=== PATIENT | male | born 2000 | race Caucasian/White ===

== ENCOUNTER 2023-07-07 16:43 | Emergency (ER) | payer OTHER, SELFPAY ==
[2023-07-07] VITALS (8 sets, daily range): BP systolic 112–127; BP diastolic 58–76; PULSE 63–76; RESP 16; TEMP 36.6; O2SAT 95–100; BMI 30.1
--- NOTE | 2023-07-07 17:57 | DI.RAD.S_ITS ---
PROCEDURE: XR KNEE RT 3V INDICATIONS: pain TECHNIQUE: 3 views of the knee were acquired. COMPARISON: None. FINDINGS: Bones: No fractures or dislocations. No suspicious bony lesions. Soft tissues: No significant joint effusion. No suspicious soft tissue calcifications. IMPRESSION: No acute bony abnormality or significant effusion. If symptoms persist with conservative management, consider cross-sectional imaging such as CT or MRI. Approved by: Yuliana Chandler M.D.,Ph.D. on 07/07/2023 at 18:59
--- NOTE | 2023-07-07 20:48 | ED_ITS ---
HPI - Extremity Problem General Chief complaint: Extremity Problem,Nontraumatic Stated complaint: Knee pain. Time Seen by Provider: 07/07/23 20:47 Source: patient Mode of arrival: Ambulatory History of Present Illness HPI Narrative: 22-year-old male with ongoing anterior right knee pain for the last few weeks. No recent new activity or injury or twisting. Occasionally he has locking like symptoms. No previous arthroscopy or interventions on that knee, no joint injections. Occasionally it feels swollen, not recently. Painful with working activities, as he works security and carries gear. 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 No abrasions or skin injuries, no penetrating injuries. No change in footwear or activities. Related Data Allergies Allergy/AdvReac Type Severity Reaction Status Date / Time Penicillins Allergy Verified 07/07/23 19:43 Exam Narrative Exam Narrative: GENERAL: Well-developed patient, in mild distress. HEAD: Atraumatic. Normocephalic. EYES: Pupils equal round and reactive. Extraocular motions intact. No scleral icterus. No injection or drainage. ENT: Nose without bleeding, purulent drainage. Throat without erythema, tonsillar hypertrophy or exudate. Airway patent. NECK: Trachea midline. Non tender CARDIOVASCULAR: Regular rate and rhythm without murmurs, gallops, or rubs. RESPIRATORY: Clear to auscultation. Breath sounds equal bilaterally. No wheezes, rales, or rhonchi. GASTROINTESTINAL: Abdomen soft, non-tender, nondistended. EXTREMITIES: Right knee with no gross deformity or effusion, no tenderness to medial joint line, no tenderness to lateral joint line, Mukul's testing with good strong endpoint. No pain with valgus or varus stress testing. He can fully extend, and he can bring his heel to his buttock without difficulty. Some mild tenderness superior to the patella, possible tendonitis. No tenderness medial or lateral aspect of the patella when it is gently displaced, not consistent with patellofemoral syndrome. No posterior mass or tenderness, history of possible Bedolla's cyst noted BACK: Nontender without deformity or crepitance. No flank tenderness. NEURO: AOx3. SKIN: No rash or erythema of visible areas Initial Vital Signs Initial Vital Signs: Vital Signs Temperature 97.8 F 07/07/23 16:57 Pulse Rate 76 05/17/24 16:57 Respiratory Rate 16 07/07/23 16:57 Blood Pressure 127/76 07/07/23 16:57 Pulse Oximetry 99 07/07/23 16:57 Oxygen Delivery Method Room Air 07/07/23 16:57 Course Orders Ordered: ED Orders 07/07/23 17:57 XR knee RT 3V Stat Vital Signs Vital signs: Vital Signs - 8 hr 07/07/23 21:00 07/07/23 21:30 07/07/23 21:56 Pulse Rate 69 63 64 Respiratory Rate 16 Blood Pressure 126/58 L Pulse Oximetry 97 98 100 Oxygen Delivery Method Room Air MDM - Extremity (Nontraumatic) Imaging Data Extremity x-ray #1: Radiologist's Impression: [address] [address] XRay Report Signed Patient: Som Foster MR#: [id number] : 2000 Acct:[id number] Age/Sex: 22 / M Date of Service: 07/07/23 Loc: ED Accession Number: [id number] Procedure: XR knee RT 3V Ordering Provider: Shannon Dixon D.O. PROCEDURE: XR KNEE RT 3V INDICATIONS: pain TECHNIQUE: 3 views of the knee were acquired. COMPARISON: None. FINDINGS: Bones: No fractures or dislocations. No suspicious bony lesions. Soft tissues: No significant joint effusion. No suspicious soft tissue calcifications. IMPRESSION: No acute bony abnormality or significant effusion. If symptoms persist with conservative management, consider cross-sectional imaging such as CT or MRI. Approved by: Yuliana Chandler M.D.,Ph.D. on 07/07/2023 at 18:59 [facility] Narrative Medical decision making narrative: 22-year-old male with right-sided knee pain anterior, points to superior patella area, no tenderness at that area, no gross joint effusion, no fever, no midline or lateral joint line tenderness, normal flexion and extension. Lot Mukul's with good endpoint, no pain with valgus/varus stress. Screening x-ray negative. Consider neoprene or other ozrl-fro-zkkdkht knee support. He may need MRI of the knee and/or arthroscopy and follow up, given contact information for local orthopedic surgeon. Advised to take ibuprofen/tylenol for pain control. Discharged home with family. Follow up with Orthopedic surgery, contact information for Dr. Dixon Discharge Plan Departure Patient Disposition: Home Clinical Impression: Knee pain, right anterior Instructions: DI for Knee Pain Activity Restrictions/Additional Instructions: Ongoing right knee pain, with intermittent locking like sensation. Consider internal derangement of the ligaments, such as a bucket-handle like tear of the meniscus, or a gisella foreign body that is getting in the way of normal joint motion. X-ray right knee unremarkable today. No gross effusion fluid on the knee. Stable knee exam today. Consider use of zqgd-clw-dctthye sports like neoprene sleeve to the right knee. This is available at most sporting Goods sections of [employer], or [employer] sporting [employer] like [employer]. Medical supply shop also might carry neoprene knee sleeves. Take Tylenol and or Motrin as needed for pain control. Consider follow up with Orthopedic surgery, possible MRI of the knee further imaging, possible arthroscopy visualization and treatment of the knee. Contact information given for local orthopedic surgery Dr. Dixon Referrals: Audrey Dixon MD [Physician] - Provider,Yanick VASQUEZ [Primary Care Provider] - Stand Alone Forms: Patient Portal/API
== END 2023-07-07 22:00 | disposition home or self-care (01) ==
PROVIDERS: Emergency Provider Emergency Medicine
DX: M25.561 Pain in right knee (principal)
CPT/HCPCS: 73562; 99281; 99282

== ENCOUNTER 2024-05-17 19:41 | Emergency (ER) | payer OTHER, SELFPAY ==
[2024-05-17] VITALS (9 sets, daily range): BP systolic 111–146; BP diastolic 66–85; PULSE 73–96; RESP 17–21; TEMP 36.5; O2SAT 97–99; BMI 28.0
--- NOTE | 2024-05-17 19:47 | DI.RAD.S_ITS ---
PROCEDURE: XR CHEST 1V INDICATIONS: chest pain TECHNIQUE: One view of the chest was acquired. COMPARISON: None. FINDINGS: Surgical changes and devices: None. Lungs and pleura: Lungs are clear. No pleural effusions or pneumothorax. Mediastinum: Mediastinal contours appear normal. Heart size is normal. Bones and chest wall: No suspicious bony lesions. Overlying soft tissues appear unremarkable. IMPRESSION: No acute cardiopulmonary abnormalities or focal consolidation. Dictated by: Tom Vicente M.D. on 05/17/2024 at 20:06 Approved by: Tom Vicente M.D. on 05/17/2024 at 20:06
--- NOTE | 2024-05-17 19:52 | EKG_ITS ---
[address] [address] Test Date: 2024-05-17 Pat Name: Som Foster Department: [facility] Room: Gender: Male Audience Coordinator: : 2000 Requested By: Order Number: [id number] Reading MD: Joseph Paige MD Measurements Intervals [place] Rate: 95 P: 61 MS: 156 QRS: 75 QRSD: 90 T: -1 QT: 336 QTc: 422 Interpretive Statements Normal sinus rhythm Nonspecific T wave abnormality Electronically Signed On 05-19-2024 8:49:29 PDT by Joseph Paige MD
[2024-05-17 20:08] LABS: Add Manual Diff / Slide Review NO; Basophils Absolute Auto 100 /uL (0-100); Basophils Percent Auto 0.7 % (0-2); Eosinophils Absolute Auto 400 /uL (0-450); Eosinophils Percent Auto 4.1 % (2-4); Hematocrit 46.5 % (41-53); Hemoglobin 16.2 g/dL (13.5-17.5); Lymphocytes Absolute Auto 2300 /uL (1100-4500); Lymphocytes Percent Auto 22.5 % (25-40); Mean Corpuscular HGB Conc 34.9 % (30-36); Mean Corpuscular Hemoglobin 30.7 PG (26-34); Mean Corpuscular Volume 88.1 fL (80-100); Monocytes Absolute Auto 500 /uL (0-900); Neutrophils Absolute Auto 7000 /uL (1500-7000); Neutrophils Percent Auto 67.7 % (50-75); Platelet Count 355 X10^3/uL (150-400); Red Blood Cell Count 5.28 X10^6/uL (4.5-5.9); Red Cell Distribution Width 12.8 % (11.6-14.8); White Blood Cell Count 10.3 X10^3/uL (4.5-11.0)
[2024-05-17 20:14] LABS: INR 1.1 (0.9-1.3); Prothrombin Time 12.4 SECONDS (9.4-12.5)
[2024-05-17 20:17] LABS: PTT Partial Thromboplastin Tim 36 SECONDS (25.1-36.5)
[2024-05-17 20:19] LABS: Alanine Aminotransferase 97 IU/L (<50); Albumin 4.7 g/dL (3.5-5.0); Albumin Globulin Ratio 1.3 (1.0-2.8); Alkaline Phosphatase 77 U/L (38-126); Aspartate Aminotransferase 49 IU/L (17-59); BUN Creatinine Ratio 12.6 (6-22); Blood Urea Nitrogen 11 mg/dL (9-20); Calcium 9.7 mg/dL (8.4-10.2); Carbon Dioxide 23 mmol/L (22-32); Chloride 105 mmol/L (98-107); Creatine Kinase 106 U/L (55-170); Estimated Glomerular Filt Rate > 60 mL/min (>60); Globulin 3.7 g/dL (1.7-4.1); Glucose 116 mg/dL (70-100); HEMOLYSIS < 15 (0-50); Lipase 48 U/L (23-300); Magnesium 1.8 mg/dL (1.6-2.3); Potassium 3.6 mmol/L (3.4-5.1); Sodium 141 mmol/L (137-145); Total Protein 8.4 g/dL (6.3-8.2)
[2024-05-17 20:30] LABS: NT-proBNP (BNP-Adult 18+) < 20 pg/mL (<125); Troponin I < 0.012 ng/mL (0.01-0.034)
[2024-05-17 21:12] LABS: Influenza A - CEPHEID Flu A NEGATIVE (NEGATIVE); Influenza B - CEPHEID Flu B NEGATIVE (NEGATIVE); Respiratory Syncytial Virus Negative (Negative)
[2024-05-17 21:17] LABS: COVID-19 CEPHEID 4-PLEX PCR Negative (Negative)
--- NOTE | 2024-05-17 23:23 | ED_ITS ---
HPI - Chest Pain General Chief Complaint: Chest Pain Stated Complaint: chest pain when breathing, cough, SOB Time Seen by Provider: 05/17/24 20:35 Source: patient Mode of arrival: Ambulatory Limitations: no limitations History of Present Illness HPI narrative: Otherwise healthy 23-year-old young man with 6 days of upper respiratory symptoms including fevers that have now resolved, nonproductive cough, nasal congestion. Presents complaining of central chest pain worse with a deep breath worsening over the course of the day. He has been taking DayQuil to help with his upper respiratory symptoms. He notes that both ears feel like they are under water. Related Data Allergies Allergy/AdvReac Type Severity Reaction Status Date / Time Penicillins Allergy Verified 07/07/23 19:43 Review of Systems Review of Systems Narrative: Pertinent positive and negative findings as per HPI Patient History Social History Smoking Status: Current every day smoker Smoking Status: Current every day smoker tobacco type: vaping Exam Initial Vital Signs Initial Vital Signs: Vital Signs Temperature 97.7 F 05/17/24 19:44 Pulse Rate 96 H 05/17/24 19:44 Respiratory Rate 18 05/17/24 19:44 Blood Pressure 140/79 05/17/24 19:44 Pulse Oximetry 99 05/17/24 19:44 Oxygen Delivery Method Room Air 05/17/24 19:44 General: Healthy appearing, in no acute distress. Able to give a complete and coherent history. Well-nourished well-developed HEENT: Moist mucous membranes, normal sclera with reactive pupils, bilateral serous effusions Neck: No cervical adenopathy Respiratory: Lungs are clear to auscultation, no wheezing no rales no rhonchi. Full and symmetrical air movement with pain reproduced on deep breathing Cardiac: Regular rate and rhythm no murmurs no bruits Abdomen: Soft, nontender, no rebound or guarding, no flank pain Skin: Warm and dry, no rashes Neurologic: Grossly neurologically intact with no obvious asymmetries or abnormalities Extremities: No trauma, well perfused Psych: Cooperative, appropriate insight and affect Course Orders Ordered: ED Orders 05/17/24 19:44 Covid-19 + FLU A/B + RSV - PCR Stat 05/17/24 19:47 XR chest 1V Stat EKG-12 Lead Stat 05/17/24 19:59 Complete Blood Count AUTO DIFF Stat Comprehensive Metabolic Panel Stat Lipase Stat Magnesium Stat NT-proBNP (BNP-Adult 18+) Stat PTT Partial Thromboplastin Bobo Stat Prothrombin Time INR Stat Troponin & CK Cardiac Panel Stat Vital Signs Vital signs: Vital Signs - 8 hr 05/17/24 19:44 05/17/24 20:31 05/17/24 20:31 Temperature 97.7 F Pulse Rate 96 H 89 Respiratory Rate 18 Blood Pressure 140/79 146/85 H Pulse Oximetry 99 97 Oxygen Delivery Method Room Air 05/17/24 21:00 05/17/24 21:00 05/17/24 21:30 Temperature Pulse Rate 77 Respiratory Rate 19 Blood Pressure 120/69 111/71 Pulse Oximetry 97 Oxygen Delivery Method 05/17/24 21:30 05/17/24 22:00 05/17/24 22:00 Temperature Pulse Rate 78 80 Respiratory Rate 20 18 Blood Pressure 114/66 Pulse Oximetry 97 97 Oxygen Delivery Method 05/17/24 22:30 Temperature Pulse Rate 73 Respiratory Rate 21 Blood Pressure Pulse Oximetry 98 Oxygen Delivery Method MDM - Chest Pain Lab Data 05/17/24 19:59 05/17/24 19:59 Labs: Lab Results 05/17/24 05/17/24 Range/Units 19:44 19:59 WBC 10.3 (4.5-11.0) X10^3/uL RBC 5.28 (4.5-5.9) X10^6/uL Hgb 16.2 (13.5-17.5) g/dL Hct 46.5 (41-53) % MCV 88.1 (80-100) fL MCH 30.7 (26-34) PG MCHC 34.9 (30-36) % RDW 12.8 (11.6-14.8) % Plt Count 355 (150-400) X10^3/uL Neut % (Auto) 67.7 (50-75) % Lymph % (Auto) 22.5 L (25-40) % Coleman % (Auto) 5.0 (3-14) % Eos % (Auto) 4.1 H (2-4) % Baso % (Auto) 0.7 (0-2) % Neut # (Auto) 7000 (2860-6298) /uL Lymph # (Auto) 2300 (7584-0525) /uL Coleman # (Auto) 500 (0-900) /uL Eos # (Auto) 400 (0-450) /uL Baso # (Auto) 100 (0-100) /uL PT 12.4 (9.4-12.5) SECONDS INR 1.1 (0.9-1.3) APTT 36 (25.1-36.5) SECONDS Sodium 141 (137-145) mmol/L Potassium 3.6 (3.4-5.1) mmol/L Chloride 105 (98-107) mmol/L Carbon Dioxide 23 (22-32) mmol/L BUN 11 (9-20) mg/dL Creatinine 0.87 (0.66-1.25) mg/dL Estimated GFR > 60 (>60) mL/min BUN/Creatinine Ratio 12.6 (6-22) Glucose 116 H (70-100) mg/dL Calcium 9.7 (8.4-10.2) mg/dL Magnesium 1.8 (1.6-2.3) mg/dL Total Bilirubin 1.0 (0.2-1.3) mg/dL AST 49 (17-59) IU/L ALT 97 H (<50) IU/L Alkaline Phosphatase 77 (38-126) U/L Total Creatine Kinase 106 (55-170) U/L Troponin I < 0.012 (0.01-0.034) ng/mL NT-Pro-B Natriuret Pep < 20 (<125) pg/mL Total Protein 8.4 H (6.3-8.2) g/dL Albumin 4.7 (3.5-5.0) g/dL Globulin 3.7 (1.7-4.1) g/dL Albumin/Globulin Ratio 1.3 (1.0-2.8) Lipase 48 (23-300) U/L SARS-CoV-2 (PCR) Negative (Negative) Influenza A (RT-PCR) Flu a negative (NEGATIVE) Influenza B (RT-PCR) Flu b negative (NEGATIVE) RSV (PCR) Negative (Negative) MDM Narrative Medical decision making narrative: 23-year-old otherwise healthy young man on day 6 of viral symptoms do seem to be improving now with chest pain worse with deep breathing. No change to fever cough does seem to be improving. No suggestion of bacterial pneumonia on physical exam or with workup. He does have bilateral serous effusions with no evidence of bacterial otitis. Discussed anticipated course of resolution of his pleurisy and serous effusions. Workup demonstrating no evidence of bacterial infection or acute cardiac involvement is reviewed with the patient. There was no indication for hospitalization at this time he is safe for discharge Discharge Plan Departure Patient Disposition: Home Clinical Impression: Acute pleurisy without pleural effusion Acute serous otitis media of both ears Qualifiers: Recurrence: non-recurrent Qualified Code(s): H65.03 - Acute serous otitis media, bilateral Instructions: DI for Pleurisy Activity Restrictions/Additional Instructions: Thank you for coming in today You are getting over a viral illness and her having some of the complications of the end of a virus. The lining of your lungs can get somewhat inflamed and it hurts to take a deep breath. This is called pleurisy and this is why you are having chest pain. Do not have bacterial pneumonia and you are not having a heart attack. Your ears feel like they are under water because there is fluid behind both tympanic membranes. We often see this with viruses and it will resolve by itself. You do not have an ear infection and do not need antibiotics You may find that using Sudafed, uhle-arf-ntkljjm decongestant, is helpful in drying out the back of your throat so that your ears drain sooner. Regarding the pleurisy pain, using 400 mg of ibuprofen (2 tbdg-brn-niieqjw pills) and 1 Tylenol every 6 hours can be very helpful in controlling pain. If you find that you are getting worse or develop any new symptoms, please feel free to return to the emergency department for further evaluation. Stand Alone Forms: Patient Portal/API/Survey, Work Release Note
[2024-05-17] MEDS: KETOROLAC 30 MG/ML VIAL 15 MG IV (23:47)
== END 2024-05-17 23:53 | disposition home or self-care (01) ==
PROVIDERS: Emergency Provider Emergency Medicine
DX: R09.1 Pleurisy (principal); H65.03 Acute serous otitis media, bilateral
CPT/HCPCS: 0241U; 71045; 80053; 82550; 83690; 83735; 83880; 84484; 85025; 85610; 85730; 93005; 93010; 96374; 99284; J1885

== ENCOUNTER 2024-08-12 19:37 | Emergency (ER) | payer OTHER, SELFPAY ==
[2024-08-12 19:57] VITALS: BP 147/86; PULSE 95; RESP 16; TEMP 36.4; O2SAT 97; BMI 31.0
--- NOTE | 2024-08-12 20:01 | DI.RAD.S_ITS ---
PROCEDURE: XR CHEST 2V INDICATIONS: cough, fever TECHNIQUE: 2 views of the chest were acquired. COMPARISON: [facility], CR, XR CHEST 1V, 05/17/2024, 19:49. FINDINGS: Surgical changes and devices: None. Lungs and pleura: Lungs are clear. No pleural effusions or pneumothorax. Mediastinum: Mediastinal contours are normal. Heart size is normal. Bones and chest wall: No suspicious bony abnormalities. Soft tissues appear unremarkable. IMPRESSION: No acute pulmonary process. Dictated by: Karlene Blakely M.D. on 08/12/2024 at 20:30 Approved by: Karlene Blakely M.D. on 08/12/2024 at 20:30
[2024-08-12 20:24] LABS: Strep Grp A by PCR Rapid Negative (Negative)
[2024-08-12 20:50] LABS: Influenza A - CEPHEID Flu A NEGATIVE (NEGATIVE); Influenza B - CEPHEID Flu B NEGATIVE (NEGATIVE); Respiratory Syncytial Virus Negative (Negative)
[2024-08-12 20:51] LABS: COVID-19 CEPHEID 4-PLEX PCR Negative (Negative)
== END 2024-08-13 00:29 | disposition left against medical advice (07) ==
PROVIDERS: Emergency Provider Emergency Medicine
DX: R50.9 Fever, unspecified (principal); R51.9 Headache, unspecified
CPT/HCPCS: 0241U; 71046; 87651; 99281